=== PATIENT | male | born 1975 | race Caucasian/White ===

== ENCOUNTER 2019-12-23 03:16 | Emergency (ER) | payer SELFPAY ==
--- NOTE | ~2019-12-23 | CT_ITS ---
EXAMINATION: CT abdomen pelvis w con INDICATION: Periumbilical abdominal pain TECHNIQUE: Computed tomographic images of the abdomen and pelvis were obtained after the administrati on of 100 cc of Omnipaque 350 intravenous contrast. The dose-length product (DLP) was 1473.34 mGy-cm. Automated exposure control and iterative reconstruction technique were employed. COMPARISON: 05/14/2018 FINDINGS: Minimal dependent atelectasis is present in the lung bases. The heart size is normal. The l iver is diffusely low in attenuation when compared with the spleen, consistent with hepatic steatosis . The spleen, pancreas, gallbladder, and adrenal glands are normal. Scarring is present in the upper poles of the otherwise unremarkable kidneys. No pathologically enlarged abdominal or pelvic lymph nod es are identified. There is no free intraperitoneal gas or evidence of bowel obstruction. Bowel surgi addie changes are noted at the rectosigmoid junction. There are at least four fat-containing midline ve ntral hernias at and near the umbilicus. There is severe lumbar spondylosis at L5-S1. IMPRESSION: 1. At least four fat-containing umbilical and periumbilical hernias. Reviewed, dictated and finalized at location A.
[2019-12-23 03:17] VITALS: BP 174/107; PULSE 86; RESP 16; TEMP 36.8; O2SAT 100
[2019-12-23] MEDS: ONDANSETRON INJ 4 MG/2 ML VIAL IV PUSH (03:30)
[2019-12-23] MEDS: SODIUM CHLORIDE 0.9% IV 1,000 ML 999 ML IV CONT (03:30)
[2019-12-23 03:37] LABS: Basophils Absolute Auto 0.1 K/mm3 (0.0-0.1); Basophils Percent Auto 0.6 % (0.2-1.2); Eosinophils Absolute Auto 0.2 K/mm3 (0-0.3); Eosinophils Percent Auto 2.2 % (0-4.4); Hematocrit 43.6 % (42.0-52.0); Hemoglobin 14.4 g/dL (14.0-18.0); Immature Granulocyte Absolute 0.05 K/mm3 (0.00-0.031); Immature Granulocyte Percent A 0.5 % (0-0.5); Lymphocytes Absolute Auto 1.91 K/mm3 (0.9-3.2); Lymphocytes Percent Auto 18.1 % (18.3-44.2); Mean Corpuscular Hemoglobin 31.4 pg (26-34); Mean Corpuscular Volume 95.2 fl (80-100); Monocytes Absolute Auto 1.1 K/mm3 (0.1-0.6); Monocytes Percent Auto 10.7 % (2.6-8.5); Neutrophils Absolute Auto 7.2 K/mm3 (1.3-6.7); Neutrophils Percent Auto 67.9 % (45.5-73.1); Platelet Count Result 189 k/mm3 (150-375); Red Blood Count 4.58 M/mm3 (4.6-6.20); Red Cell Distribution Width 12.8 % (11.5-14.5); White Blood Count 10.6 K/mm3 (4.5-10.0)
[2019-12-23 03:47] LABS: Add Urine Microscopic? YES; Appearance Urine Clear (Clear); Bilirubin Urine Negative (Negative); Blood Urine Negative (Negative); Color Urine Yellow (Yellow); Glucose Urine UA 1+ mg/dL (Negative); Ketones Urine Negative (Negative); Leukocyte Esterase Ur Negative LEU/UL (Negative); Mucus Urine Rare /lpf; Nitrate Urine Negative (Negative); Protein Urine Negative (Negative); Specific Grav Ur 1.018 (1.001-1.035); Squamous Epithelial Cell Urine Rare /hpf (Few); Urobilinogen Urine Negative mg/dL (<2.0); WBC Urine 0-3 /hpf
[2019-12-23 03:54] LABS: Alanine Aminotransferase 104 U/L (4-50); Albumin Level 4.2 g/dL (3.5-5.1); Alkaline Phosphatase 155 U/L (38-126); Anion Gap 5 mmol/L (8-16); Aspartate Amino Transferase 43 U/L (17-59); Bilirubin,Total 0.1 mg/dL (0.2-1.3); Blood Urea Nitrogen 14 mg/dL (9-20); Carbon Dioxide 28 mmol/L (22-30); Chloride 107 mmol/L (98-107); Estimated CRCL calculation 111 ml/min; Estimated Glomerular Filt Rate > 60; Glucose 183 mg/dL (75-110); Lipase 68 U/L (23-300); Potassium 3.6 mmol/L (3.4-5.0); Sodium 140 mmol/L (137-145)
[2019-12-23 04:00] VITALS: TEMP 36.8
--- NOTE | 2019-12-23 04:51 | ED.ABDPAIN ---
HPI - Abdominal Pain General Chief Complaint: Abdominal Pain Stated Complaint: right shoulder pain Time Seen by Provider: 12/23/19 03:24 History of Present Illness HPI narrative: Patient is a 44-year-old male who presents ER with periumbilical pain. Patient reports he has a umbilical hernia that is been giving him intermittent pain over the last few months. Reports neither increased so he came in for further evaluation. Reports mild nausea with vomiting. He has had a normal bowel movement today. No aggravating or alleviating factors that he is noted. No radiation of the pain. Related Data Home Medications Medication Instructions Recorded Confirmed No Home Medications 12/23/19 Allergies Allergy/AdvReac Type Severity Reaction Status Date / Time morphine Allergy Unknown Unknown Verified 12/23/19 03:35 Sulfa (Sulfonamide Allergy Unknown Unknown Verified 12/23/19 03:35 Antibiotics) Review of Systems Review of Systems: All systems reviewed & are unremarkable except as noted in HPI and below Constitutional: Constitutional: Denies chills, Denies fever(s) and Denies weakness ENT: Denies nasal congestion and Denies sore throat Cardiovascular: Cardiovascular: Denies chest pain and Denies radiating jaw, neck or arm pain Respiratory: Respiratory: Denies cough and Denies dyspnea Gastrointestinal: Gastrointestinal: Reports abdominal pain, Denies bloating, Denies diarrhea, Reports nausea and Reports vomiting PMFSH Past Medical History Medical History (Updated 12/23/19 @ 04:59 by Cristino Davidson MD) Diverticulitis Surgical History Surgical History (Updated 12/23/19 @ 04:55 by Cristino Davidson MD) H/O hernia repair History of ileostomy History of partial colectomy Social History Social History (Updated 12/23/19 @ 04:57 by Cristino Davidson MD) Smoking status: Current every day smoker Alcohol intake: never Exam Narrative: Exam Narrative: GENERAL: Well-appearing, well-nourished, and in no acute distress. HEAD: Normocephalic, atraumatic. ENT: Mucous membranes moist. CHEST: Clear to auscultation. No respiratory distress. HEART: Regular rate and rhythm. Normal peripheral pulses. ABDOMEN: Soft, mildly tender around the umbilicus with reducible inguinal hernia, nondistended, normal active bowel sounds. EXTREMITIES: Normal range of motion. No edema. SKIN: Warm, dry, no rash. NEURO: Alert and oriented x3. Course Course Emergency Course: Front of results. Discharge home. Vital Signs Vital signs: Vital Signs Temperature 98.3 F 12/23/19 03:17 Pulse Rate 86 12/23/19 03:17 Respiratory Rate 16 12/23/19 03:17 Blood Pressure 174/107 H 12/23/19 03:17 Pulse Oximetry 100 12/23/19 03:17 Temperature 98.3 F 12/23/19 03:17 Pulse Rate 86 12/23/19 03:17 Respiratory Rate 16 12/23/19 03:17 Blood Pressure 174/107 H 12/23/19 03:17 Pulse Oximetry 100 12/23/19 03:17 MDM - Abdominal Pain Lab Data Result diagrams: 12/23/19 03:31 12/23/19 03:31 Labs: Lab Results 12/23/19 12/23/19 12/23/19 Range/Units 03:31 03:31 03:39 WBC 10.6 H (4.5-10.0) K/mm3 RBC 4.58 L (4.6-6.20) M/mm3 Hgb 14.4 (14.0-18.0) g/dL Hct 43.6 (42.0-52.0) % MCV 95.2 (80-100) fl MCH 31.4 (26-34) pg MCHC 33.0 (32-36) g/dl RDW 12.8 (11.5-14.5) % Plt Count 189 (150-375) k/mm3 MPV 12.0 H (7.4-10.4) fl Immature Gran % (Auto) 0.5 (0-0.5) % Neut % (Auto) 67.9 (45.5-73.1) % Lymph % (Auto) 18.1 L (18.3-44.2) % Preston % (Auto) 10.7 H (2.6-8.5) % Eos % (Auto) 2.2 (0-4.4) % Baso % (Auto) 0.6 (0.2-1.2) % Lymph # (Auto) 1.91 (0.9-3.2) K/mm3 Preston # (Auto) 1.1 H (0.1-0.6) K/mm3 Eos # (Auto) 0.2 (0-0.3) K/mm3 Baso # (Auto) 0.1 (0.0-0.1) K/mm3 Abs Immat Gran (auto) 0.05 H (0.00-0.031) K/mm3 Absolute Neuts (auto) 7.2 H (1.3-6.7) K/mm3 Absolute Nucleated RBC 0.0 (0.0-0.012)
[2019-12-23 05:07] VITALS: BP 140/97; PULSE 88; RESP 18; TEMP 36.7; O2SAT 100
== END 2019-12-23 05:09 | disposition home or self-care (01) ==
PROVIDERS: Emergency Provider Emergency Medicine
DX: R10.33 Periumbilical pain (principal); Z90.49 Acquired absence of other specified parts of digestive tract; F17.200 Nicotine dependence, unspecified, uncomplicated; K42.9 Umbilical hernia without obstruction or gangrene; K76.0 Fatty (change of) liver, not elsewhere classified
CPT/HCPCS: 36415; 74177; 80053; 81001; 83690; 85025; 96361; 96374; 96375; 99284; J2405; J3010; J7030; Q9967